=== PATIENT | female | born 1980 | race Asian ===

== ENCOUNTER 2022-12-05 22:17 | Emergency (ER) | payer SELFPAY ==
[~2022-12-05] VITALS: Ht 154.9 cm; Wt 60.0 kg
[2022-12-05] MEDS ORDERED: LOSA-382 PO (22:31)
[2022-12-05] MEDS ORDERED: AMLO-257 PO (22:31)
[2022-12-06] MEDS ORDERED: PERTUSS(ACELL),DIPH,TET VAC/PF 0.5 ML SYRINGE IM. ONE (01:15)
[2022-12-06] MEDS ORDERED: LIDOCAINE/PF 1% 5 ML VIAL ONE (01:52)
[2022-12-06] MEDS ORDERED: LIDOCAINE 1% 10 ML VIAL SQ ONE (02:15)
[2022-12-06] MEDS ORDERED: MORPHINE SULFATE 4 MG/ML SYRINGE IM ONE (02:30)
[2022-12-06] MEDS ORDERED: CEPH-558 PO (04:57)
[2022-12-06] MEDS ORDERED: PERCT PO (04:58)
[2022-12-06] MEDS ORDERED: IBUP-1492 PO (04:58)
[2022-12-06 05:18] VITALS: BP 120/76
[2022-12-06] MEDS ORDERED: TRAM-559 PO (05:47)
== END 2022-12-06 05:21 | disposition home or self-care (01) ==
LOC: EMS 22:17 → EDBD 22:17 → EMS 12-06 05:21
DX: S61.411A Laceration without foreign body of right hand, initial encounter (principal); I10 Essential (primary) hypertension; V49.9XXA Car occupant (driver) (passenger) injured in unspecified traffic accident, initial encounter; Y93.89 Activity, other specified; Y92.89 Other specified places as the place of occurrence of the external cause; Y99.8 Other external cause status
CPT/HCPCS: 99284; 73120; 90715; 90471; 12002; 96372; J2001; J2270; J3490

== ENCOUNTER 2022-12-10 09:10 | Emergency (ER) | payer MEDICAID ==
[~2022-12-10] VITALS: Ht 162.6 cm; Wt 60.0 kg
[~2022-12-10 09:10] MED LIST: AMLO-257 PO; CEPH-558 PO; IBUP-1492 PO; LOSA-382 PO; PERCT PO; TRAM-559 PO
[2022-12-10 12:47] VITALS: BP 139/85
== END 2022-12-10 13:02 | disposition home or self-care (01) ==
LOC: EMS 09:10
DX: S61.411D Laceration without foreign body of right hand, subsequent encounter (principal); I10 Essential (primary) hypertension; V89.2XXD Person injured in unspecified motor-vehicle accident, traffic, subsequent encounter
CPT/HCPCS: 99281; Z7502

== ENCOUNTER 2022-12-15 11:25 | Emergency (ER) | payer MEDICAID ==
[~2022-12-15] VITALS: Ht 160 cm; Wt 68.2 kg
[~2022-12-15 11:25] MED LIST changes: -CEPH-558 PO; -IBUP-1492 PO; -PERCT PO; -TRAM-559 PO
[2022-12-15 11:29] VITALS: BP 140/99
== END 2022-12-15 12:34 | disposition home or self-care (01) ==
LOC: EMS 11:26
DX: S61.411D Laceration without foreign body of right hand, subsequent encounter (principal); I10 Essential (primary) hypertension; X58.XXXD Exposure to other specified factors, subsequent encounter
CPT/HCPCS: 99281; Z7502